=== PATIENT | male | born 1990 | race African-American/Black ===

== ENCOUNTER 2017-02-26 13:16 | Emergency (ER) | payer OTHER ==
[2017-02-27 19:58] LABS: CHLAMYDIA TRACH Not Detected (Not Detected); N GONOR Not Detected (Not Detected)
== END 2017-02-26 14:01 | disposition home or self-care (01) ==
LOC: SED 13:16
PROVIDERS: Nurse Practitioner Family
DX: Z20.2 Contact with and (suspected) exposure to infections with a predominantly sexual mode of transmission (principal); F17.210 Nicotine dependence, cigarettes, uncomplicated
CPT/HCPCS: 87491; 87591; 99282; J0696